=== PATIENT | male | born 1955 | race Caucasian/White ===

== ENCOUNTER 2016-10-31 06:41 | Day surgery (SDC) | payer OTHER ==
--- NOTE | ~2016-10-31 | EGD ---
EGD REPORT [facility] [address] [id number] NAME: LIDIA MARISCAL : [birth year] STATUS : REG [facility]#: [id number] AGE: 61 ADM/REG DATE : 10/31/16 MR#: [id number] REPORT SERV DATE: 10/31/16 DICTATED BY: JANEL AVILA DATE: 10/31/16 REPORT STATUS : Draft TRANSCRIBED BY: [facility] DATE: 10/31/16 Endoscopy Center Patient Name: Lidia Mariscal Date of : 1955 Attending MD: JANEL AVILA MD Procedure Date No Time: 10/31/2016 Procedure: Upper GI endoscopy Indications: Abnormal CT of the GI tract; cirrhosis; esophageal varices. Patient Profile: Informed consent was obtained from the patient by me prior to the procedure. Risks, benefits, and alternatives were discussed including the risk of bleeding, perforation, infection, reaction to medicine, missed lesion, and cardiopulmonary complications. Referring MD: MICHAEL LANCE JR., PRADIP ALCOCER Medicines: Monitored Anesthesia Care Complications: No immediate complications. Procedure: Pre-Anesthesia Assessment: - ASA Grade Assessment: III - A patient with severe systemic disease. After obtaining informed consent, the endoscope was passed under direct vision. Throughout the procedure, the patient's blood pressure, pulse, and oxygen saturations were monitored continuously. The GIF [id number] was introduced through the mouth, and advanced to the second part of duodenum. The endoscope was withdrawn with careful examination all mucosal surfaces including retroflexion stomach. The upper GI endoscopy was accomplished without difficulty. The patient tolerated the procedure well. Findings: The examined duodenum was normal. The gastric antrum was normal. Mild portal hypertensive gastropathy was found in the cardia, in the gastric fundus and in the gastric body. The esophagus and gastroesophageal junction were examined with white light. There was no visual evidence of Harper's esophagus. Grade I varices were found in the lower third of the esophagus, no stigmata. LA Grade A (one or more mucosal breaks less than 5 mm, not extending between tops of 2 mucosal folds) esophagitis was found. Impression: - Normal examined duodenum. - Normal antrum. EGD REPORT [address] [address] NAME: LIDIA MARISCAL : [birth year] STATUS : REG [facility] [place] PAT#: [id number] AGE: 61 ADM/REG DATE : 10/31/16 MR#: [id number] REPORT SERV DATE: 10/31/16 DICTATED BY: JANEL AVILA DATE: 10/31/16 REPORT STATUS : Draft TRANSCRIBED BY: [employer] DATE: 10/31/16 - Portal hypertensive gastropathy. - There is no endoscopic evidence of Harper's esophagus. - Grade I esophageal varices. - LA Grade A reflux esophagitis. Recommendation: - Patient has a contact number available for emergencies. The signs and symptoms of potential delayed complications were discussed with the patient. Return to normal activities tomorrow. Written discharge instructions were provided to the patient. - Regular diet. - Take Zantac 150mg daily. - Start Propranolol 10mg bid. - Scheduled to see Dr. Alcocer re: cirrhosis November. Procedure Code(s): --- Professional --- 93718, Esophagogastroduodenoscopy, flexible, transoral; diagnostic, including collection of specimen(s) by brushing or washing, when performed (separate procedure) Diagnosis Code(s): --- Professional --- K76.6, Portal hypertension K31.89, Other diseases of stomach and duodenum I85.00, Esophageal varices without bleeding R93.3, Abnormal findings on diagnostic imaging of other parts of digestive tract CPT copyright 2013 [employer]. All rights reserved. The codes documented in this report are preliminary and upon phytopathologist review may be revised to meet current compliance requirements. JANEL AVILA MD 10/31/2016 9:05 AM This report has been signed electronically. Number of Addenda: 0 Note Initiated On: 10/31/2016 8:41 AM Scope Withdrawal Time 0 hours 0 minutes 0 seconds [id number] [id number]
[~2016-10-31 06:41] MED LIST: ADVIL PO; ASAB PO; COZAAR100 MG PO; FLOMAX4 PO; NAP250 PO; NEXIUM40 PO; NORCO1 TA1 PO; PCET PO; T PO; TRULICITY0.75 MG/0. SQ; [UNRECOGNIZED DRUG - CODE] OR
== END 2016-10-31 23:59 | disposition home or self-care (01) ==
LOC: DMU 06:41
PROVIDERS: Internal Medicine Gastroenterology
PROC: 0DJ08ZZ Inspection of Upper Intestinal Tract, Via Natural or Artificial Opening Endoscopic (ICD-10-PCS; principal; 2016-10-31 08:30)
DX: I85.00 Esophageal varices without bleeding (principal); K76.6 Portal hypertension; K31.89 Other diseases of stomach and duodenum; G47.33 Obstructive sleep apnea (adult) (pediatric); F32.9 Major depressive disorder, single episode, unspecified; I10 Essential (primary) hypertension; Z85.51 Personal history of malignant neoplasm of bladder; Z79.82 Long term (current) use of aspirin; Z79.899 Other long term (current) drug therapy; Z87.442 Personal history of urinary calculi; Z98.890 Other specified postprocedural states
CPT/HCPCS: 82962; A9270-GY; J2405